=== PATIENT | female | born 1980 | race Caucasian/White ===

== ENCOUNTER → 2017-01-15 | Outpatient (CLI) | payer OTHER ==
[~2017-01-15] MED LIST: NO HOME MEDICATIONS; PERCOCET 5/321 UDTAB PO; PRENATAL1 TA1 PO
== END ==
LOC: BHSO 12:49
DX: F31.81 Bipolar II disorder (principal)

== ENCOUNTER 2017-01-24 14:30 | Outpatient (RCR) | payer OTHER | END 2017-02-08 09:11 | disposition home or self-care (01) | LOC: WSPT 14:30 | DX: M76.32 Iliotibial band syndrome, left leg (principal) | CPT/HCPCS: G8978-GP; G8979-GP; G8980-GP ==

== ENCOUNTER → 2017-07-27 | Outpatient (CLI) | payer OTHER | LOC: BHSO 13:54 | DX: F31.81 Bipolar II disorder (principal) ==

== ENCOUNTER → 2017-08-27 | Outpatient (CLI) | payer OTHER | LOC: BHSO 10:36 | DX: F31.81 Bipolar II disorder (principal) ==

== ENCOUNTER 2017-11-16 09:54 | Outpatient (RCR) | payer OTHER | END 2017-11-21 07:00 | disposition home or self-care (01) | LOC: WSPT 09:54 | DX: Z01.818 Encounter for other preprocedural examination (principal); M25.872 Other specified joint disorders, left ankle and foot; M65.872 Other synovitis and tenosynovitis, left ankle and foot ==

== ENCOUNTER → 2017-11-27 | Outpatient (CLI) | payer OTHER | LOC: BHSO 08:57 | DX: F31.81 Bipolar II disorder (principal) | CPT/HCPCS: G0463 ==

== ENCOUNTER 2018-02-04 08:45 | Outpatient (RCR) | payer OTHER | END 2018-02-05 17:50 | disposition home or self-care (01) | LOC: WSPT 08:45 | DX: Z47.89 Encounter for other orthopedic aftercare (principal); Z98.890 Other specified postprocedural states | CPT/HCPCS: G0283-GP ==

== ENCOUNTER → 2018-05-29 | Outpatient (CLI) | payer OTHER | LOC: BHSO 13:23 | DX: F31.81 Bipolar II disorder (principal) | CPT/HCPCS: G0463 ==

== ENCOUNTER → 2018-11-26 | Outpatient (CLI) | payer OTHER | LOC: BHSO 13:57 | DX: F31.81 Bipolar II disorder (principal) | CPT/HCPCS: G0463 ==

== ENCOUNTER → 2019-03-21 | Outpatient (CLI) | payer OTHER | LOC: BHSO 08:38 | DX: F31.81 Bipolar II disorder (principal) | CPT/HCPCS: G0463 ==

== ENCOUNTER 2019-04-18 22:50 | Emergency (ER) | payer OTHER ==
[~2019-04-18] VITALS: Ht 165.1 cm; Wt 56.8 kg
[2019-04-18 22:58] VITALS: BP 111/58; TEMP 99
[2019-04-18 23:31] VITALS: PULSE 77
[2019-04-18] MEDS ORDERED: TYLENOL 325MG325 MG PO (23:34)
[2019-04-18] MEDS ORDERED: LAMICTAL200 MG (23:34)
[2019-04-18] MEDS ORDERED: MELATONIN5 M1 SL (23:34)
== END 2019-04-18 23:35 | disposition home or self-care (01) ==
LOC: COL.ER 22:50
DX: S01.81XA Laceration without foreign body of other part of head, initial encounter (principal); W22.8XXA Striking against or struck by other objects, initial encounter; Y92.009 Unspecified place in unspecified non-institutional (private) residence as the place of occurrence of the external cause

== ENCOUNTER 2019-04-23 08:20 | Emergency (ER) | payer OTHER ==
[~2019-04-23 08:20] MED LIST changes: +LAMICTAL200 MG; +MELATONIN5 M1 SL; +TYLENOL 325MG325 MG PO
[2019-04-23 08:29] VITALS: BP 98/57; PULSE 60; TEMP 99
== END 2019-04-23 08:42 | disposition home or self-care (01) ==
LOC: COL.ER 08:20
DX: S01.112D Laceration without foreign body of left eyelid and periocular area, subsequent encounter (principal); X58.XXXD Exposure to other specified factors, subsequent encounter

== ENCOUNTER → 2019-05-16 | Outpatient (CLI) | payer OTHER | LOC: BHSO 09:18 | DX: F31.81 Bipolar II disorder (principal) | CPT/HCPCS: G0463 ==

== ENCOUNTER 2019-06-27 11:00 | Outpatient (RCR) | payer OTHER | END 2019-07-03 10:03 | disposition home or self-care (01) | LOC: WSPT 11:00 | DX: Z01.818 Encounter for other preprocedural examination (principal); M25.562 Pain in left knee ==

== ENCOUNTER → 2019-08-15 | Outpatient (CLI) | payer OTHER | LOC: BHSO 08:36 | DX: F31.81 Bipolar II disorder (principal) | CPT/HCPCS: G0463 ==

== ENCOUNTER → 2020-07-16 | Outpatient (CLI) | payer OTHER | LOC: BHSO 08:02 | DX: F31.81 Bipolar II disorder (principal) | CPT/HCPCS: G0463 ==

== ENCOUNTER → 2021-03-25 | Outpatient (CLI) | payer OTHER | LOC: MC.RAD 14:10 | DX: Z12.31 Encounter for screening mammogram for malignant neoplasm of breast (principal) ==

== ENCOUNTER 2021-07-18 21:00 | Emergency (ER) | payer OTHER ==
[~2021-07-18] VITALS: Ht 165.1 cm; Wt 56.8 kg
[2021-07-18 21:16] VITALS: TEMP 98.2
[2021-07-18 22:23] VITALS: BP 105/57; PULSE 56
== END 2021-07-18 22:28 | disposition home or self-care (01) ==
LOC: COL.ER 21:00
DX: K08.89 Other specified disorders of teeth and supporting structures (principal)
CPT/HCPCS: J2270